=== PATIENT | male | born 2000 | race Caucasian/White ===

== ENCOUNTER 2025-03-24 19:29 | Emergency (ER) | payer MEDICAID ==
[~2025-03-24] VITALS: Ht 182.9 cm; Wt 77.1 kg
[2025-03-24 20:23] VITALS: TEMP 98.2
[2025-03-24 21:47] LABS: APPEARANCE,URINE CLEAR (CLEAR); BILIRUBIN,URINE NEGATIVE (NEGATIVE); BLOOD, URINE NEGATIVE Ery/uL (NEGATIVE); COLOR,URINE YELLOW (YELLOW); KETONES,URINE NEGATIVE (NEGATIVE); LEUKOCYTE ESTERASE ,URINE NEGATIVE (NEGATIVE); NITRITE, URINE NEGATIVE (NEGATIVE); PROTEIN,URINE NEGATIVE (NEGATIVE); UGLUCOSE NEGATIVE (NEGATIVE); UROBILINOGEN,URINE 0.2 EU/dL (0.2)
[2025-03-24 22:07] VITALS: BP 112/65; O2SAT 98
== END 2025-03-24 22:04 | disposition home or self-care (01) ==
LOC: ER 19:34
DX: N43.3 Hydrocele, unspecified (principal)
CPT/HCPCS: 76870-TC; 87086-TC